=== PATIENT | female | born 1985 | race Caucasian/White ===

== ENCOUNTER 2017-04-19 11:03 | Emergency (ER) | payer OTHER ==
[2017-04-19 11:07] VITALS: BP 124/50; PULSE 79; TEMP 97.8; BMI 25.6
--- NOTE | 2017-04-19 11:13 | PDOC ---
History of Present Illness - General Chief Complaint: Vaginal Bleeding Stated Complaint: ABD PAIN (5 WKS ) Time Seen by Provider: 04/19/17 11:10 - History of Present Illness Travel History: No Initial Comments: 04/19/17 15:45 32yo Czech speaking woman with no significant PMH who is 5 weeks and presents with three days of diffuse abdominal pain that radiates bilaterally to her flanks. LMP 03/04/17. The pain is worse when she is lying on either side. Endorses small amoung of vaginal bleeding and nausea. Denies emesis , fever, chills, dysuria, melena, and hematochezia. She has been able to tolerate PO. She has not received any care. Past History - Past Medical History Allergies/Adverse Reactions: Allergies Allergy/AdvReac Type Severity Reaction Status Date / Time No Known Allergies Allergy Verified 04/19/17 11:04 COPD: No - Suicide/Smoking/Psychosocial Hx Smoking History: Never smoked Have you smoked in the past 12 months: No Information on smoking cessation initiated: No Hx Alcohol Use: No Drug/Substance Use Hx: No Substance Use Type: None *Physical Exam - Vital Signs Last Vital Signs Temp Pulse Resp BP Pulse Ox 97.8 F 79 18 124/50 100 04/19/17 11:05 04/19/17 11:05 04/19/17 11:05 04/19/17 11:05 04/19/17 11:05 - Physical Exam General Appearance: Yes: Appropriately Dressed, Apparent Distress HEENT: positive: Normal ENT Inspection Neck: positive: Supple. negative: Lymphadenopathy (R), Lymphadenopathy (L) Respiratory/Chest: positive: Lungs Clear, Normal Breath Sounds Cardiovascular: positive: Regular Rhythm, Regular Rate, S1, S2 Vascular Pulses: Dorsalis-Pedis (R): 2+, Doralis-Pedis (L): 2+ Female Pelvic Exam: positive: normal external exam, cervical os closed. negative: adnexal tenderness Gastrointestinal/Abdominal: positive: Soft, Other (diffuse abdominal ttp L > R) . negative: Distended, Guarding Musculoskeletal: positive: CVA Tenderness (mild) Neurologic: positive: Fully Oriented, Alert, Normal Mood/Affect ED Treatment Course - LABORATORY CBC & Chemistry Diagram: 04/19/17 11:51 04/19/17 11:51 - RADIOLOGY Radiology Studies Ordered: 04/19/17 16:12 EXAM#: TYPE/EXAM: RESULT: [id number] US/TRANSVAGINAL US PREG 5 weeks . Spotting. Evaluate fetus. Pelvis ultrasound ,Transvesical and transvaginal The uterus is gravid measuring 8.8 x 5.3 cm. An intrauterine gestation sac and pole are identified. Long View-rump length measures 8 mm compatible 6 weeks 5 days of gestation. heart rate is 1 20 bpm. A tiny yolk sac is identified measuring 2 mm. The right ovary measures 4.2 x 3.1 cm and appears unremarkable normal vascular flow. Left ovary measures 3.5 x 1.6 cm and appears unremarkable with normal vascular flow. There is no free fluid in the cul-de-sac IMPRESSION: Single live intrauterine with estimated gestational age of 6 weeks 4 days. Both ovaries appear unremarkable. Follow-up is needed Reported By: Stew Cunningham MD 04/19/17 1447 Sara Lindquist Technologist: Vannessa Uribe Transcribed Date/Time: 04/19/171446 [employer] Operator: Stew Cunningham Printed Date/Time: By: Medical Decision Making - Medical Decision Making 04/19/17 16:08 32yo woman who is reportedly 5 weeks who presents with acute onset abdominal pain and vaginal spotting. Current differential includes, but not limited to threatened vs UTI. Will peform basic labs including CBC , CMP, UA, Beta-HCG, and TVUS to assess the fetus. CBC, BMP 04/19/17 11:51 04/19/17 11:51 Hepatic Panel Total Bilirubin 0.2 mg/dL (0.2-1.0) 04/19/17 11:51 AST 14 U/L (15-37) L 04/19/17 11:51 ALT 19 U/L (12-78) 04/19/17 11:51 Alkaline Phosphatase 73 U/L (45-117) 04/19/17 11:51 Albumin 3.9 g/dl (3.4-5.0) 04/19/17 11:51 Laboratory Tests 04/19/17 11:51 Beta HCG, Quant 10734.3 Labs reassuring that there is unlikely an infection. TVUS revealed single live intrauterine estimated at 6 weeks 4 days. No comment of heart beat, but gestational sac and pole are identified. Patient's vital signs are stable, and patient is well appearing. Patient will be discharged home. All laboratory and imaging results were discussed with the patient. Instructed her to follow-up with Dr. Darnell FLOODPLAIN MANAGER on ( office closed on Wednesday) for a repeat quantitative Beta HCG and ultrasound. Patient is in agreement with plan. *DC/Admit/Observation/Transfer Diagnosis at time of Disposition: Miscarriage, threatened, early - Referrals Referrals: Treasure Darnell MD [Staff Physician] - - Patient Instructions Printed Discharge Instructions: DI for Threatened Additional Instructions: Please follow-up with your Deaf And Hard Of Hearing Teacher in the next 48 hours to have your Beta[place] ([place] [address].3) and to repeat your ultrasound. You can take Tylenol for your pain as needed. Please return to the Emergency Department if you have vaginal bleeding, intense pain, fever, chills, can't keep down any food, or have new, worsening, or concerning symptoms. Print Language: IRISH - Post Discharge Activity
--- NOTE | 2017-04-19 11:17 | PDOC ---
Attending Attestation - Resident Resident Name: Sara Lindquist - ED Attending Attestation I have performed the following: I have examined & evaluated the patient, The case was reviewed & discussed with the resident, I agree w/resident's findings & plan, Exceptions are as noted - HPI HPI: 04/19/17 11:15 Five weeks , vaginal bleeding - Physicial Exam PE: 04/19/17 11:16 VSS, NAD, No Hemorrhage - Medical Decision Making 04/19/17 11:[address] Lindquist's assessment and plan
[2017-04-19] MEDS ORDERED: ACETAMINOPHEN 1000 MG/100 ML VIAL (NON FORMULARY) IVPB ONE (11:50)
[2017-04-19 12:16] LABS: BASO % 0.5 % (0-2.0); EOS % 0.8 % (0-4.5); HEMATOCRIT 39.6 % (32.4-45.2); HEMOGLOBIN 13.1 GM/dL (10.7-15.3); LYMPH % 20.5 % (8-40); MCH 29.5 pg (25.7-33.7); MCHC 33.2 g/dl (32.0-36.0); MEAN PLT VOLUME 9.2 fl (7.5-11.1); MONO % 7.1 % (3.8-10.2); NEUT % 71.1 % (42.8-82.8); PLATELET COUNT 249 K/MM3 (134-434); RBC 4.45 M/mm3 (3.60-5.2); RDW 13.9 % (11.6-15.6); WHITE BLOOD COUNT 7.9 K/mm3 (4.0-10.0)
[2017-04-19 12:18] LABS: URINE APPEARANCE SLCLOUDY; URINE BILIRUBIN NEGATIVE (NEGATIVE); URINE BLOOD NEGATIVE (NEGATIVE); URINE COLOR LTYELLOW; URINE GLUCOSE (UA) NEGATIVE (NEGATIVE); URINE KETONE NEGATIVE (NEGATIVE); URINE NITRITE NEGATIVE (NEGATIVE); URINE PROTEIN NEGATIVE (NEGATIVE); URINE UROBILINOGEN NEGATIVE mg/dL (0.2-1.0)
[2017-04-19] MEDS ORDERED: ACETAMINOPHEN INJECTION 100 ML IVPB ONE (12:18)
[2017-04-19 12:28] LABS: CHLORIDE 103 mmol/L (98-107); POTASSIUM 3.5 mmol/L (3.5-5.1); SODIUM 138 mmol/L (136-145)
[2017-04-19 12:30] LABS: URINE LEUK ESTERASE 1+ (NEGATIVE)
[2017-04-19 12:44] LABS: EPI CELLS RARE /HPF (FEW); URINE MUCUS RARE
[2017-04-19 13:08] LABS: ALBUMIN 3.9 g/dl (3.4-5.0); ALK PHOS 73 U/L (45-117); ANION GAP 11 (8-16); BILIRUBIN,TOTAL 0.2 mg/dL (0.2-1.0); BLOOD UREA NITROGEN 8 mg/dL (7-18); CO2 24 mmol/L (21-32); CREATININE 0.7 mg/dL (0.55-1.02); GLUCOSE,RANDOM 106 mg/dL (74-106); SGOT/AST 14 U/L (15-37); SGPT/ALT 19 U/L (12-78); TOT PROT 7.8 g/dl (6.4-8.2)
== END 2017-04-19 16:44 | disposition home or self-care (01) ==
LOC: JER 11:03
PROC: 3E033NZ Introduction of Analgesics, Hypnotics, Sedatives into Peripheral Vein, Percutaneous Approach (ICD-10-PCS; principal; 2017-04-19)
DX: O26.891 Other specified pregnancy related conditions, first trimester (principal); Z3A.01 Less than 8 weeks gestation of pregnancy; O20.0 Threatened abortion
CPT/HCPCS: 36415; 76817-TC; 80053; 81003; 81015; 84702; 85025; 86850; 86900; 86901; 87491; 87591; 96374; 99284-25

== ENCOUNTER 2017-07-18 23:05 | Emergency (ER) | payer OTHER ==
[2017-07-18 23:19] VITALS: BP 103/69; PULSE 67; TEMP 98; BMI 24.9
[2017-07-19] MEDS ORDERED: SODIUM CHLORIDE 0.9% 500 ML INFUS.BAG IV ONE (01:16)
[2017-07-19] MEDS ORDERED: ONDANSETRON 4 MG/2 ML VIAL IVPUSH ONE (01:17)
[2017-07-19] MEDS ORDERED: ONDANSETRON 4 MG/2 ML VIAL ONE (01:18)
--- NOTE | 2017-07-19 01:23 | PDOC ---
History of Present Illness - General Chief Complaint: Pain Stated Complaint: STOMACH PAIN/12 WKS Time Seen by Provider: 07/19/17 01:12 History Source: Patient Exam Limitations: No Limitations - History of Present Illness Initial Comments: 07/19/17 01:17 Patient is a 32 years old female with history C/S x1, LMP 04/08/17, at 4 months complaining off abdominal pain generalized 2 day. Patient states that yesterday she had been vomiting 6 episodes. States no vomiting today however she is still feeling nauseous and has crampy type 10/10 pain generalized. States only hydrate evaluate today. Denies any dysuria, vaginal bleeding, vomiting. PMD: Dr. Grimm PMHX: as above PSOCHX: neg cig, drug, etoh ALL: NKDA GENERAL/CONSTITUTIONAL: [No fever or chills. No weakness. No weight change.] HEAD, EYES, EARS, NOSE AND THROAT: [No change in vision. No ear pain or discharge. No sore throat.] CARDIOVASCULAR: [No chest pain or shortness of breath.] RESPIRATORY: [No cough, wheezing, or hemoptysis.] GASTROINTESTINAL: (+) nausea, vomiting, (-) diarrhea or constipation. No rectal bleeding.] GENITOURINARY: [No dysuria, frequency, or change in urination.] MUSCULOSKELETAL: [No joint or muscle swelling or pain. No neck or back pain.] SKIN AND BREASTS: [No rash or easy bruising.] NEUROLOGIC: [No headache, vertigo, loss of consciousness, or loss of sensation.] PSYCHIATRIC: [No depression or anxiety.] ENDOCRINE: [No increased thirst. No abnormal weight change.] HEMATOLOGIC/LYMPHATIC: [No anemia, easy bleeding, or history of blood clots.] ALLERGIC/IMMUNOLOGIC: [No hives or skin allergy. No latex allergy.] GENERAL: [The patient is awake, alert, and fully oriented, in no acute distress. ] HEAD: [Normal with no signs of trauma.] EYES: [Pupils equal, round and reactive to light, extraocular movements intact, sclera anicteric, conjunctiva clear.] ENT: [Ears normal, nares patent, oropharynx clear without exudates. Moist mucous membranes.] NECK: [Normal range of motion, supple without lymphadenopathy, JVD, or masses.] LUNGS: [Breath sounds equal, clear to auscultation bilaterally. No wheezes, and no crackles.] HEART: [Regular rate and rhythm, normal S1 and S2 without murmur, rub.] ABDOMEN: [Soft, (+)tenderness b/l flank lower ribs, gravid, normoactive bowel sounds. No guarding, no rebound. No masses.] EXTREMITIES: [Normal range of motion, no edema. No clubbing or cyanosis. No cords, erythema, or tenderness.] NEUROLOGICAL: [Cranial nerves II through XII grossly intact. Normal speech, normal gait.] PSYCH: [Normal mood, normal affect.] SKIN: [Warm, Dry, normal turgor, no rashes or lesions noted.] Past History - Past Medical History Allergies/Adverse Reactions: Allergies Allergy/AdvReac Type Severity Reaction Status Date / Time No Known Allergies Allergy Verified 07/18/17 23:14 Home Medications: Ambulatory Orders Cephalexin [Keflex] 500 mg PO TID #20 capsule 07/19/17 COPD: No Other medical history: Pt denies - Reproductive History (#): 2 Para: 1 - Suicide/Smoking/Psychosocial Hx Smoking History: Never smoked Have you smoked in the past 12 months: No Information on smoking cessation initiated: No Hx Alcohol Use: No Drug/Substance Use Hx: No Substance Use Type: None *Physical Exam - Vital Signs Last Vital Signs Temp Pulse Resp BP Pulse Ox 98.0 F 67 18 103/69 99 07/18/17 23:15 07/18/17 23:15 07/18/17 23:15 07/18/17 23:15 07/18/17 23:15 ED Treatment Course - LABORATORY CBC & Chemistry Diagram: 07/19/17 01:20 07/19/17 01:20 Medical Decision Making - Medical Decision Making 07/19/17 01:17 Patient is a 32 years old female with history C/S x1, LMP 04/08/17, at 4 months complaining off abdominal pain generalized 2 day. Most likely dehydrated due to vomiting. IV fluids and Zofran. Labs, reassess. Bedside ultrasound done noted IUP, FH 141 07/19/17 04:57 labs reviewed noted to have wbc on the urine given Keflex 500mg po will discharge with Keflex for 7 days I discussed the physical exam findings, ancillary test results and final diagnoses with the patient. I answered all of the patient's questions. The patient was satisfied with the care received and felt comfortable with the discharge plan and treatment plan. The Patient agrees to follow up with the primary care physician within 24-72 hours. *DC/Admit/Observation/Transfer Diagnosis at time of Disposition: Urinary tract infection during Qualifiers: Trimester: second trimester Qualified Code(s): O23.42 - Unspecified infection of urinary tract in , second trimester - Discharge Dispostion Disposition: HOME Condition at time of disposition: Stable - Prescriptions Prescriptions: Cephalexin [Keflex] 500 mg PO TID #20 capsule - Referrals - Patient Instructions Printed Discharge Instructions: DI for Urinary Tract Infection (UTI) Additional Instructions: Your Discharge Instructions: You must call primary care physician within 24 hours to arrange follow-up. Return to the Emergency Department with any new, persistent or worsening symptoms, for fever, chills, SOB, dizziness or any other concerning changes that may occur. You must take the antibiotics as prescribed until finished. Print Language: INDONESIAN - Post Discharge Activity
[2017-07-19 01:36] LABS: BASO % 0.6 % (0-2.0); EOS % 6.1 % (0-4.5); HEMATOCRIT 32.8 % (32.4-45.2); HEMOGLOBIN 11.5 GM/dL (10.7-15.3); LYMPH % 34.5 % (8-40); MCHC 35.1 g/dl (32.0-36.0); MEAN CELL VOLUME 91.3 fl (80-96); MEAN PLT VOLUME 8.7 fl (7.5-11.1); MONO % 8.5 % (3.8-10.2); NEUT % 50.3 % (42.8-82.8); PLATELET COUNT 213 K/MM3 (134-434); RBC 3.59 M/mm3 (3.60-5.2); RDW 14.5 % (11.6-15.6); WHITE BLOOD COUNT 7.5 K/mm3 (4.0-10.0)
[2017-07-19 01:37] LABS: URINE APPEARANCE CLOUDY; URINE BILIRUBIN NEGATIVE (NEGATIVE); URINE BLOOD 1+ (NEGATIVE); URINE COLOR YELLOW; URINE GLUCOSE (UA) NEGATIVE (NEGATIVE); URINE KETONE NEGATIVE (NEGATIVE); URINE NITRITE NEGATIVE (NEGATIVE); URINE PROTEIN NEGATIVE (NEGATIVE); URINE UROBILINOGEN NEGATIVE mg/dL (0.2-1.0)
[2017-07-19 01:39] LABS: URINE LEUK ESTERASE 3+ (NEGATIVE)
[2017-07-19 01:41] LABS: EPI CELLS MANY /HPF (FEW); URINE BACTERIA RARE /hpf (NONE SEEN); URINE MUCUS RARE
[2017-07-19 02:05] LABS: ANION GAP 12 (8-16); BLOOD UREA NITROGEN 6 mg/dL (7-18); CALCIUM 8.6 mg/dL (8.5-10.1); CHLORIDE 104 mmol/L (98-107); CO2 23 mmol/L (21-32); CREATININE 0.4 mg/dL (0.55-1.02); GLUCOSE,RANDOM 81 mg/dL (74-106); POTASSIUM 3.9 mmol/L (3.5-5.1); SODIUM 139 mmol/L (136-145)
[2017-07-19] MEDS ORDERED: ACETAMINOPHEN 325 MG TABLET (FP) PO ONE (02:43)
[2017-07-19] MEDS ORDERED: CEPHALEXIN MONOHYDRATE 500 MG CAPSULE (UD) PO ONE (02:43)
[2017-07-19] MEDS ORDERED: ACETAMINOPHEN 325 MG TABLET (FP) ONE (03:23)
[2017-07-19] MEDS ORDERED: CEPHALEXIN MONOHYDRATE 250 MG CAPSULE (FP) ONE (03:23)
== END 2017-07-19 05:22 | disposition home or self-care (01) ==
LOC: JER 23:05
PROC: 3E033GC Introduction of Other Therapeutic Substance into Peripheral Vein, Percutaneous Approach (ICD-10-PCS; principal; 2017-07-18)
DX: O23.42 Unspecified infection of urinary tract in pregnancy, second trimester (principal); Z3A.16 16 weeks gestation of pregnancy
CPT/HCPCS: 36415; 80048; 81003; 81015; 85025; 96374; 99283-25

== ENCOUNTER 2017-08-18 14:27 | Emergency (ER) | payer OTHER ==
[2017-08-18 14:52] VITALS: BMI 26.4
[2017-08-18] MEDS ORDERED: ONDANSETRON *ODT* 4 MG TABLET SL ONE (14:53)
--- NOTE | 2017-08-18 14:53 | PDOC ---
Rapid Medical Evaluation Chief Complaint: Pain Time Seen by Provider: 08/18/17 14:52 Medical Evaluation: Allergies Allergy/AdvReac Type Severity Reaction Status Date / Time No Known Allergies Allergy Verified 08/18/17 14:50 08/18/17 14:52 I have performed a brief in-person evaluation of this patient. The patient presents with a chief complaint of: vomiting/diarrhea since last night, headache, abdominal pain, LMP 04/06/17, 5 meses Pertinent physical exam findings: well appearing I have ordered the following: CMP, CBC, zofran The patient will proceed to the ED for further evaluation. Discharge Disposition - Diagnosis Vomiting and diarrhea - Referrals - Patient Instructions - Post Discharge Activity
[2017-08-18 17:29] VITALS: BP 93/53; PULSE 90; TEMP 98.1
--- NOTE | 2017-08-18 17:53 | PDOC ---
History of Present Illness - General Chief Complaint: Labor Assessment Stated Complaint: NAUSEA VOMITING abd pain Time Seen by Provider: 08/18/17 14:52 - History of Present Illness Initial Comments: 08/18/17 19:01 Patient is a 32-year-old female who is 5 months presents emergency department for nausea vomiting and diarrhea. Patient states that she went out to eat last night and had chicken. She thinks that the chicken was bad both her and her [id number] who ate the chicken got sick. She's had 8-10 episodes of vomiting as well as multiple episodes of diarrhea. Admits to epigastric pain and headache. Denies fevers, chills, hemoptysis, hematochezia, constipation. Denies vaginal bleeding, back pain lower abdominal pain. Past History - Travel Traveled outside of the country in the last 30 days: No Close contact w/someone who was outside of country & ill: No - Past Medical History Allergies/Adverse Reactions: Allergies Allergy/AdvReac Type Severity Reaction Status Date / Time No Known Allergies Allergy Verified 08/18/17 14:52 Home Medications: Ambulatory Orders Cephalexin [Keflex] 500 mg PO TID #20 capsule 07/19/17 COPD: No - Reproductive History (#): 2 Para: 1 - Suicide/Smoking/Psychosocial Hx Smoking History: Never smoked Have you smoked in the past 12 months: No Information on smoking cessation initiated: No Hx Alcohol Use: No Drug/Substance Use Hx: No Substance Use Type: None Review of Systems - Review of Systems Able to Perform ROS?: Yes Comments:: 08/18/17 19:01 CONSTITUTIONAL: Absent: fever, chills, diaphoresis, generalized weakness, malaise, loss of appetite HEENT: Absent: rhinorrhea, nasal congestion, throat pain, throat swelling, difficulty swallowing, mouth swelling, ear pain, eye pain, visual Changes CARDIOVASCULAR: Absent: chest pain, loss of consciousness, palpitations, irregular heart rate, peripheral edema RESPIRATORY: Absent: cough, shortness of breath, dyspnea with exertion, orthopnea, wheezing, stridor, hemoptysis GASTROINTESTINAL: Present: abdominal pain, nausea, vomiting, diarrhea. Absent: abdominal distension, constipation, melena, hematochezia GENITOURINARY: Absent: dysuria, frequency, urgency, hesitancy, hematuria, flank pain, genital pain, vaginal bleeding. MUSCULOSKELETAL: Absent: myalgia, arthralgia, joint swelling SKIN: Absent: rash, itching, pallor HEMATOLOGIC/IMMUNOLOGIC: Absent: easy bleeding, easy bruising, lymphadenopathy, frequent infections ENDOCRINE: Absent: unexplained weight gain, unexplained weight loss, heat intolerance, cold intolerance NEUROLOGIC: Present: headache Absent: focal weakness or paresthesias, dizziness, unsteady gait, seizure, mental status changes, bladder or bowel incontinence PSYCHIATRIC: Absent: anxiety, depression, suicidal or homicidal ideation, hallucinations. Is the patient limited Belarusian proficient: No *Physical Exam - Vital Signs Last Vital Signs Temp Pulse Resp BP Pulse Ox 98.1 F 90 20 93/53 100 08/18/17 17:23 08/18/17 17:23 08/18/17 17:23 08/18/17 17:23 08/18/17 14:50 - Physical Exam Comments: 08/18/17 19:02 GENERAL: Well developed, well nourished. Awake and alert. No acute distress. Appears well , non-toxic. HEENT: Normocephalic, atraumatic. PERRLA, EOMI. No conjunctival pallor. Sclera are non- icteric. Moist mucous membranes. Oropharynx is clear. NECK: Supple. Full ROM. No JVD. Carotid pulses 2+ and symmetric, without bruits. No thyromegaly. No lymphadenopathy. CARDIOVASCULAR: Regular rate and rhythm. No murmurs, rubs, or gallops. Distal pulses are 2+ and symmetric. PULMONARY: No evidence of respiratory distress. Lungs clear to auscultation bilaterally. No wheezing, rales or rhonchi. ABDOMINAL: diffuse abdominal tenderness with no focal findings. Soft. Non-tender. Non- distended. No rebound or guarding. No organomegaly. Normoactive bowel sounds. MUSCULOSKELETAL Normal range of motion at all joints. No bony deformities or tenderness. No CVA tenderness. EXTREMITIES: No cyanosis. No clubbing. No edema. No calf tenderness. SKIN: Warm and dry. Normal capillary refill. No rashes. No jaundice. NEUROLOGICAL: Alert, awake, appropriate. Cranial nerves 2-12 intact. No deficits to light touch and temperature in face, upper extremities and lower extremities. No motor deficits in the in face, upper extremities and lower extremities. Normoreflexic in the upper and lower extremities. Normal speech. Toes are down- going bilaterally. Gait is normal without ataxia. PSYCHIATRIC: Cooperative. Good eye contact. Appropriate mood and affect. ED Treatment Course - LABORATORY CBC & Chemistry Diagram: 08/18/17 19:53 08/18/17 20:40 Medical Decision Making - Medical Decision Making 08/18/17 19:03 Patient is a 32-year-old female 5 months , who presents emergency Department with nausea vomiting and headache after eating bad chicken. Patient was cleared from labor and delivery. Exam with diffuse tenderness but no focal findings. Most likely due to vomiting. Fluids Zofran and Pepcid and Tylenol given. Patient pending labs. Sign out given to Deepa Mckinney NP. *DC/Admit/Observation/Transfer Diagnosis at time of Disposition: Vomiting and diarrhea, Gastroenteritis - Discharge Dispostion Disposition: HOME Condition at time of disposition: Stable Admit: No - Referrals - Patient Instructions Printed Discharge Instructions: Viral Gastroenteritis, Gastroenteritis Diet Additional Instructions: start a BRAT (bananas, RICE, apples, toast) diet. drink plenty of fluids. follow up with your doctor as soon as possible. - Post Discharge Activity Forms/Work/School Notes: Back to Work
[2017-08-18] MEDS ORDERED: SODIUM CHLORIDE 1,000 ML IV STA (17:56)
[2017-08-18] MEDS ORDERED: ONDANSETRON 4 MG/2 ML VIAL IVPUSH ONE (17:56)
[2017-08-18] MEDS ORDERED: FAMOTIDINE IV 20 MG/12 ML VIAL IVPB ONE (17:56)
[2017-08-18] MEDS ORDERED: ACETAMINOPHEN 1000 MG/100 ML VIAL (NON FORMULARY) IVPB ONE (18:19)
[2017-08-18] MEDS ORDERED: ACETAMINOPHEN INJECTION 100 ML IVPB ONE (19:41)
[2017-08-18] MEDS ORDERED: FAMOTIDINE 20 MG/50 ML IVPB 20 MG/50 ML MG IVPB ONE (19:42)
[2017-08-18] MEDS ORDERED: ONDANSETRON 4 MG/2 ML VIAL ONE (19:42)
[2017-08-18 20:06] LABS: BASO % 0.3 % (0-2.0); EOS % 1.4 % (0-4.5); HEMATOCRIT 27.3 % (32.4-45.2); HEMOGLOBIN 9.5 GM/dL (10.7-15.3); LYMPH % 13.7 % (8-40); MCH 32.1 pg (25.7-33.7); MEAN CELL VOLUME 91.9 fl (80-96); MEAN PLT VOLUME 9.2 fl (7.5-11.1); MONO % 8.6 % (3.8-10.2); PLATELET COUNT 235 K/MM3 (134-434); RBC 2.97 M/mm3 (3.60-5.2); RDW 13.3 % (11.6-15.6); WHITE BLOOD COUNT 7.9 K/mm3 (4.0-10.0)
--- NOTE | 2017-08-18 20:17 | PDOC ---
*Physical Exam - Vital Signs Last Vital Signs Temp Pulse Resp BP Pulse Ox 98.1 F 90 20 93/53 100 08/18/17 17:23 08/18/17 17:23 08/18/17 17:23 08/18/17 17:23 08/18/17 14:50 ED Treatment Course - LABORATORY CBC & Chemistry Diagram: 08/18/17 19:53 08/18/17 19:53 - ADDITIONAL ORDERS Additional order review: 08/18/17 19:53 RBC 2.97 L MCV 91.9 MCHC 35.0 RDW 13.3 MPV 9.2 Neutrophils % 76.0 D Lymphocytes % 13.7 D Monocytes % 8.6 Eosinophils % 1.4 Basophils % 0.3 - Medications Given in the ED: ED Medications Discontinued Medications Generic Name Dose Route Start Last Admin Trade Name Freq PRN Reason Stop Dose Admin Acetaminophen 1,000 mg 08/18/17 18:19 08/18/17 20:07 Ofirmev Injection - IVPB 08/18/17 18:20 1,000 mg ONCE ONE Administration Famotidine 20 mg in 12 mls @ 144 mls/hr 08/18/17 17:56 08/18/17 20:07 Pepcid 20 Mg/12 Ml Push IVPB 08/18/17 18:00 144 mls/hr ONCE ONE Administration Sodium Chloride 1,000 mls @ 1,000 mls/hr 08/18/17 17:56 08/18/17 20:07 Normal Saline - IV 08/18/17 18:55 1,000 mls/hr ASDIR STA Administration Ondansetron HCl 4 mg 08/18/17 14:53 08/18/17 20:09 Zofran Odt - SL 08/18/17 14:54 Not Given ONCE ONE Ondansetron HCl 4 mg 08/18/17 17:56 08/18/17 20:07 Zofran Injection IVPUSH 08/18/17 17:57 4 mg ONCE ONE Administration Medical Decision Making - Medical Decision Making 08/18/17 20:16 patient is requesting PO food. will PO challenge at this time. 08/18/17 20:37 [patient tolerated PO. CMP hemolyzed. will repeat to r/.o electrolyte abnormalities/ and assess LFTs. *DC/Admit/Observation/Transfer Diagnosis at time of Disposition: Vomiting and diarrhea, Gastroenteritis - Referrals - Patient Instructions Printed Discharge Instructions: Viral Gastroenteritis, Gastroenteritis Diet Additional Instructions: start a BRAT (bananas, RICE, apples, toast) diet. drink plenty of fluids. follow up with your doctor as soon as possible. - Post Discharge Activity Forms/Work/School Notes: Back to Work
[2017-08-18 21:12] LABS: ALBUMIN 2.6 g/dl (3.4-5.0); ALK PHOS 80 U/L (45-117); ANION GAP 7 (8-16); BILIRUBIN,TOTAL 0.2 mg/dL (0.2-1.0); BLOOD UREA NITROGEN 4 mg/dL (7-18); CALCIUM 7.6 mg/dL (8.5-10.1); CHLORIDE 108 mmol/L (98-107); CO2 23 mmol/L (21-32); CREATININE 0.4 mg/dL (0.55-1.02); GLUCOSE,RANDOM 75 mg/dL (74-106); POTASSIUM 3.2 mmol/L (3.5-5.1); SGOT/AST 10 U/L (15-37); SGPT/ALT 15 U/L (12-78); SODIUM 138 mmol/L (136-145)
== END 2017-08-18 22:02 | disposition home or self-care (01) ==
LOC: JER 14:27
DX: O26.892 Other specified pregnancy related conditions, second trimester (principal); Z3A.20 20 weeks gestation of pregnancy; R11.2 Nausea with vomiting, unspecified; R10.9 Unspecified abdominal pain; R19.7 Diarrhea, unspecified
CPT/HCPCS: 36415; 80053; 85025; 99282-25; J0131; J7030

== ENCOUNTER 2017-11-04 21:27 | Emergency (ER) | payer OTHER ==
[2017-11-04 21:33] VITALS: BP 100/56; PULSE 74; TEMP 97.4; BMI 25.4
--- NOTE | 2017-11-04 21:36 | PDOC ---
Rapid Medical Evaluation Chief Complaint: Sore Throat Time Seen by Provider: 11/04/17 21:34 Medical Evaluation: Allergies Allergy/AdvReac Type Severity Reaction Status Date / Time No Known Allergies Allergy Verified 11/04/17 21:33 Vital Signs Temp Pulse Resp BP Pulse Ox 97.4 F L 74 18 100/56 99 11/04/17 21:30 11/04/17 21:30 11/04/17 21:30 11/04/17 21:30 11/04/17 21:30 11/04/17 21:34 I have performed a brief in-person evaluation of this patient. The patient presents with a chief complaint of: sore throat and cough x1 week Pertinent physical exam findings: OP- clear without erythema/exudates. Lungs CTAB I have ordered the following: rapid strep The patient will proceed to the ED for further evaluation. Discharge Disposition - Diagnosis Pharyngitis - Referrals - Patient Instructions - Post Discharge Activity
--- NOTE | 2017-11-04 23:06 | PDOC ---
History of Present Illness - General Chief Complaint: Sore Throat Stated Complaint: CONGESTION/28 WKS Time Seen by Provider: 11/04/17 21:34 History Source: Patient Exam Limitations: No Limitations - History of Present Illness Initial Comments: 11/04/17 23:08 This is a 32-year-old who is 6 months (does not remember LMP) who presents emergency Department with sore throat and cough for one week. She denies any sick contacts. She denies any mucus production when she coughs. She denies chest pain, shortness of breath. She denies difficulty swallowing, shortness of breath, fevers, chills, drooling, abdominal pain, vaginal bleeding or vaginal discharge. Patient states child is still moving has been no change in activity. Past History - Past Medical History Allergies/Adverse Reactions: Allergies Allergy/AdvReac Type Severity Reaction Status Date / Time No Known Allergies Allergy Verified 11/04/17 21:33 Home Medications: Ambulatory Orders NK [No Known Home Medication] 11/04/17 COPD: No - Reproductive History (#): 2 Para: 1 - Suicide/Smoking/Psychosocial Hx Smoking History: Never smoked Have you smoked in the past 12 months: No Hx Alcohol Use: No Drug/Substance Use Hx: No Substance Use Type: None Review of Systems - Review of Systems Able to Perform ROS?: Yes Is the patient limited Citizen Of [place] proficient: No Constitutional: No: Symptoms Reported HEENTM: Yes: See HPI Respiratory: Yes: See HPI Cardiac (ROS): No: Symptoms Reported ABD/GI: No: Symptoms Reported : No: Symptoms Reported Musculoskeletal: No: Symptoms Reported Integumentary: No: Symptoms Reported Neurological: No: Symptoms reported Endocrine: No: Symptoms Reported Hematologic/Lymphatic: No: Symptoms Reported *Physical Exam - Vital Signs Last Vital Signs Temp Pulse Resp BP Pulse Ox 97.4 F L 74 18 100/56 99 11/04/17 21:30 11/04/17 21:30 11/04/17 21:30 11/04/17 21:30 11/04/17 21:30 - Physical Exam General Appearance: Yes: Appropriately Dressed. No: Apparent Distress HEENT: positive: Normal ENT Inspection Neck: positive: Trachea midline, Supple Respiratory/Chest: positive: Lungs Clear, Normal Breath Sounds. negative: Respiratory Distress, Accessory Muscle Use Cardiovascular: positive: Regular Rhythm, Regular Rate. negative: Murmur Gastrointestinal/Abdominal: positive: Normal Bowel Sounds, Soft. negative: Tender Musculoskeletal: positive: Normal Inspection. negative: CVA Tenderness Extremity: positive: Normal Inspection Integumentary: positive: Normal Color, Dry, Warm Neurologic: positive: Alert, Normal Response ED Treatment Course - ADDITIONAL ORDERS Additional order review: 11/04/17 21:41 Group A Strep Rapid Antigen - Final Throat Medical Decision Making - Medical Decision Making 11/04/17 23:09 A/P: 32-year-old woman who is 6 months with sore throat and dry cough for one week Oropharynx clear without erythema or exudates. Cobblestoning noted in the posterior oropharynx No sinus tenderness noted TMs clear without erythema or bulging Lungs clear to auscultation bilaterally Patient with signs and symptoms of an upper respiratory viral infection. I will collect a rapid strep rule out bacterial etiology as patient is . I'll defer influenza testing as patient has had symptoms for 7 days. I present the patient denies any complaints regarding the . Rapid strep testing is negative. I will discharge the patient home with symptomatically treatment for an upper respiratory viral infection. I will refer patient back to her primary diplomatic interpreter/translator for continued evaluation and treatment. I discussed the physical exam findings, ancillary test results and final diagnoses with the patient. I answered all of the patient's questions. The patient was satisfied with the care received and felt comfortable with the discharge plan and treatment plan. The patient will call her diplomatic interpreter/translator within 48 hours to arrange follow-up and will return to the Emergency Department with any new, persistent or worsening symptoms. *DC/Admit/Observation/Transfer Diagnosis at time of Disposition: Pharyngitis Qualifiers: Pharyngitis/tonsillitis etiology: unspecified etiology Qualified Code(s): J02.9 - Acute pharyngitis, unspecified - Discharge Dispostion Disposition: HOME Condition at time of disposition: Stable Decision to Admit order: No - Referrals Referrals: Anayeli Grimm MD [Primary Care Provider] - Gricel Collins MD [Staff Physician] - - Patient Instructions Printed Discharge Instructions: DI for Viral Upper Respiratory Infection -- Adult Additional Instructions: Rest, drink lots of fluids: Teas, water, soups, Pedialyte Saltwater gargles Steamy showers/seem to face break up mucus Avoid contact with others until fevers and cough resolved Lots of handwashing and good hygiene Continue [id number] medications for symptomatic relief Tylenol or Motrin for fever and pain Followup with private physician in one to 2 days as needed Return to emergency department for worsened symptoms, fevers, dehydration [place]cansa, bro muchos lquidos: ts, agua, sopas, Pedialyte Grgaras de agua salada Las duchas con agua parecen romper la mucosidad Evite el contacto con otras personas hasta que se resuelvan las fiebres y la tos Mucho lavado de jacinto y buena higiene Continuar tomando medicamentos sin receta para aliviar los sntomas Tylenol o Motrin para la fiebre y el dolor Seguimiento con un mdico privado en shahriar o dos pereira segn sea necesario Regrese al departamento de emergencias por sntomas empeorados, fiebre, deshidratacin Print Language: MONTENEGRIN - Post Discharge Activity
[2017-11-04] MEDS ORDERED: ACETAMINOPHEN 500 MG TABLET (FP) PO ONE (23:23)
[2017-11-04] MEDS ORDERED: ACETAMINOPHEN 500 MG TABLET (FP) ONE (23:24)
== END 2017-11-04 23:25 | disposition home or self-care (01) ==
LOC: JERFT 21:27
DX: O26.892 Other specified pregnancy related conditions, second trimester (principal); J02.9 Acute pharyngitis, unspecified; Z3A.24 24 weeks gestation of pregnancy
CPT/HCPCS: 87070; 87430; 99281-25

== ENCOUNTER 2022-04-02 21:30 | Emergency (ER) | payer OTHER ==
[2022-04-02 21:58] VITALS: BP 105/65; PULSE 67; RESP 18; TEMP 97.6; BMI 25.3
[2022-04-03] MEDS ORDERED: KETOROLAC TROMETHAMINE 30 MG/1 ML VIAL IM ONE (01:01)
[2022-04-03] MEDS ORDERED: DEXAMETHASONE SOD PHOSPHATE 10 MG/1 ML VIAL IM ONE (01:01)
[2022-04-03] MEDS ORDERED: DEXAMETHASONE SOD PHOSPHATE 10 MG/1 ML VIAL ONE (01:05)
[2022-04-03] MEDS ORDERED: KETOROLAC TROMETHAMINE 30 MG/1 ML VIAL ONE (01:05)
== END 2022-04-03 02:10 | disposition home or self-care (01) ==
LOC: JER 21:30 → JERFT 21:30 → JER 04-03 02:10
PROC: 3E0233Z Introduction of Anti-inflammatory into Muscle, Percutaneous Approach (ICD-10-PCS; principal; 2022-04-03)
PROC: 3E023NZ Introduction of Analgesics, Hypnotics, Sedatives into Muscle, Percutaneous Approach (ICD-10-PCS; 2022-04-03)
DX: M25.561 Pain in right knee (principal)
CPT/HCPCS: 99284-25; J1100

== ENCOUNTER 2022-10-02 09:36 | Emergency (ER) | payer OTHER ==
[2022-10-02 09:48] VITALS: BP 101/69; PULSE 88; RESP 17; TEMP 98.5; BMI 23.9
[2022-10-02 12:55] LABS: EPI CELLS 29 /uL (0-25.1); HEMATOCRIT 33.3 % (32.4-45.2); HYALINE CASTS 5 /uL (0-3.1); MCH 24.6 pg (25.7-33.7); MEAN CELL VOLUME 74.6 fl (80-96); MEAN PLT VOLUME 9.4 fl (7.5-11.1); PLATELET COUNT 185 10^3/uL (134-434); RBC 4.47 M/mm3 (3.60-5.2); RDW 17.1 % (11.6-15.6); URINE APPEARANCE CLEAR; URINE BACTERIA 546 /uL (0-1359); URINE BILIRUBIN NEGATIVE (NEGATIVE); URINE COLOR YELLOW; URINE GLUCOSE (UA) NEGATIVE (NEGATIVE); URINE KETONE 2+ (NEGATIVE); URINE LEUK ESTERASE 2+ (NEGATIVE); URINE NITRITE NEGATIVE (NEGATIVE); URINE PROTEIN TRACE (NEGATIVE); URINE WBC 181 /uL (0-25.8); WHITE BLOOD COUNT 3.4 K/mm3 (4.0-10.0)
[2022-10-02 13:07] LABS: URINE RBC 122.8 /uL (0-23.9); YEAST NEGATIVE (NEGATIVE)
[2022-10-02 13:18] LABS: POTASSIUM 3.5 mmol/L (3.5-5.1)
[2022-10-02 13:21] LABS: CALCIUM 8.5 mg/dL (8.5-10.1)
[2022-10-02 13:22] LABS: ALBUMIN 3.6 g/dl (3.4-5.0); BLOOD UREA NITROGEN 7.1 mg/dL (7-18)
[2022-10-02 13:25] LABS: CREATININE 0.7 mg/dL (0.55-1.3)
[2022-10-02 13:27] LABS: BILIRUBIN,TOTAL 0.6 mg/dL (0.2-1); TOT PROT 7.2 g/dl (6.4-8.2)
[2022-10-02] MEDS ORDERED: KETOROLAC TROMETHAMINE 15 MG/ML VIAL IM ONE (16:33)
[2022-10-02] MEDS ORDERED: KETOROLAC TROMETHAMINE 15 MG/ML VIAL ONE (16:38)
== END 2022-10-02 20:42 | disposition home or self-care (01) ==
LOC: JER 09:36
PROC: 3E0233Z Introduction of Anti-inflammatory into Muscle, Percutaneous Approach (ICD-10-PCS; principal; 2022-10-02)
DX: R10.11 Right upper quadrant pain (principal); N39.0 Urinary tract infection, site not specified; R30.0 Dysuria; M54.50 Low back pain, unspecified; R50.9 Fever, unspecified
CPT/HCPCS: 36415; 74176-TC; 80053; 81003; 84703; 85027; 87086; 93005; 93010; 99284-25

== ENCOUNTER 2023-04-29 15:10 | Emergency (ER) | payer OTHER ==
[2023-04-29 15:26] VITALS: PULSE 75; RESP 18; TEMP 98.6; BMI 25.9
[2023-04-29 16:25] LABS: BASO % 0.5 % (0-2.0); EOS % 1.4 % (0-4.5); HEMATOCRIT 35.9 % (32.4-45.2); HEMOGLOBIN 11.8 GM/dL (10.7-15.3); LYMPH % 25.9 % (8-40); MCH 26.7 pg (25.7-33.7); MCHC 32.9 g/dl (32.0-36.0); MEAN CELL VOLUME 81.2 fl (80-96); MEAN PLT VOLUME 9.2 fl (7.5-11.1); MONO % 5.4 % (3.8-10.2); NEUT % 66.8 % (42.8-82.8); PLATELET COUNT 210 10^3/uL (134-434); RBC 4.42 M/mm3 (3.60-5.2); RDW 15.9 % (11.6-15.6); WHITE BLOOD COUNT 7.8 K/mm3 (4.0-10.0)
[2023-04-29 16:27] LABS: EPI CELLS 6 /uL (0-25.1); HYALINE CASTS 0 /uL (0-3.1); PH,URINE 6.5 (5.0-8.0); URINE APPEARANCE CLEAR; URINE BACTERIA 1159 /uL (0-1359); URINE BILIRUBIN NEGATIVE (NEGATIVE); URINE COLOR YELLOW; URINE GLUCOSE (UA) NEGATIVE (NEGATIVE); URINE KETONE 2+ (NEGATIVE); URINE LEUK ESTERASE NEGATIVE (NEGATIVE); URINE NITRITE NEGATIVE (NEGATIVE); URINE PROTEIN NEGATIVE (NEGATIVE); URINE RBC 363 /uL (0-23.9); URINE UROBILINOGEN 0.2 mg/dL (0.2-1.0); URINE WBC 13 /uL (0-25.8)
[2023-04-29 16:43] LABS: POTASSIUM 3.6 mmol/L (3.5-5.1)
[2023-04-29 16:44] LABS: CALCIUM 9.3 mg/dL (8.5-10.1)
[2023-04-29 16:45] LABS: BLOOD UREA NITROGEN 7.8 mg/dL (7-18)
[2023-04-29] MEDS ORDERED: ACETAMINOPHEN 500 MG TABLET (FP) PO ONE (17:05)
[2023-04-29] MEDS ORDERED: ACETAMINOPHEN 500 MG TABLET (FP) ONE (17:05)
[2023-04-29 17:26] LABS: CREATININE 0.6 mg/dL (0.55-1.3)
[2023-04-29 20:16] VITALS: BP 98/57
== END 2023-04-29 20:56 | disposition home or self-care (01) ==
LOC: JER 15:10
DX: O46.8X1 Other antepartum hemorrhage, first trimester (principal); Z34.90 Encounter for supervision of normal pregnancy, unspecified, unspecified trimester
CPT/HCPCS: 36415; 76801-TC; 80048; 81003; 84702; 85025; 86850; 86900; 86901; 87086; 99284-25

== ENCOUNTER 2023-08-09 17:33 | Emergency (ER) | payer OTHER ==
[2023-08-09 17:42] VITALS: BP 92/62; PULSE 75; RESP 18; TEMP 98; BMI 25.6
[2023-08-09 18:43] LABS: EPI CELLS 17 /uL (0-25.1); HYALINE CASTS 0 /uL (0-3.1); PH,URINE 6.5 (5.0-8.0); URINE APPEARANCE CLEAR; URINE BACTERIA 151 /uL (0-1359); URINE BILIRUBIN NEGATIVE (NEGATIVE); URINE COLOR YELLOW; URINE GLUCOSE (UA) NEGATIVE (NEGATIVE); URINE KETONE NEGATIVE (NEGATIVE); URINE LEUK ESTERASE 1+ (NEGATIVE); URINE NITRITE NEGATIVE (NEGATIVE); URINE PROTEIN NEGATIVE (NEGATIVE); URINE RBC 22 /uL (0-23.9); URINE UROBILINOGEN 0.2 mg/dL (0.2-1.0); URINE WBC 51 /uL (0-25.8)
[2023-08-09] MEDS ORDERED: CEPHALEXIN MONOHYDRATE 500 MG CAPSULE (UD) ONE (20:03)
[2023-08-09] MEDS: CEPHALEXIN MONOHYDRATE 500 MG CAPSULE (UD) PO ONE (20:05)
== END 2023-08-09 20:31 | disposition home or self-care (01) ==
LOC: JER 17:33
DX: O23.42 Unspecified infection of urinary tract in pregnancy, second trimester (principal); Z3A.20 20 weeks gestation of pregnancy
CPT/HCPCS: 81003; 87086; 99283-25

== ENCOUNTER 2023-10-02 19:08 | Emergency (ER) | payer OTHER ==
[2023-10-02 19:17] VITALS: BMI 28.1
[2023-10-02 21:07] LABS: BASO % 0.6 % (0-2.0); EOS % 5.6 % (0-4.5); HEMATOCRIT 24.6 % (32.4-45.2); HEMOGLOBIN 7.9 GM/dL (10.7-15.3); MCH 22.7 pg (25.7-33.7); MCHC 32.2 g/dl (32.0-36.0); MEAN CELL VOLUME 70.6 fl (80-96); MEAN PLT VOLUME 7.7 fl (7.5-11.1); MONO % 10.8 % (3.8-10.2); PLATELET COUNT 243 10^3/uL (134-434); RBC 3.48 M/mm3 (3.60-5.2); WHITE BLOOD COUNT 6.6 K/mm3 (4.0-10.0)
[2023-10-02 21:26] LABS: POTASSIUM 3.8 mmol/L (3.5-5.1)
[2023-10-02 21:28] LABS: CALCIUM 7.8 mg/dL (8.5-10.1)
[2023-10-02 21:29] LABS: ALBUMIN 2.4 g/dl (3.4-5.0); BLOOD UREA NITROGEN 6.8 mg/dL (7-18)
[2023-10-02 21:32] LABS: CREATININE 0.5 mg/dL (0.55-1.3)
[2023-10-02 21:33] LABS: BILIRUBIN,TOTAL 0.2 mg/dL (0.2-1)
[2023-10-02] MEDS ORDERED: LIDOCAINE 5% TOPICAL PATCH ONE (21:52)
[2023-10-02] MEDS ORDERED: ACETAMINOPHEN 325 MG TABLET (FP) ONE (21:52)
[2023-10-02] MEDS: ACETAMINOPHEN 325 MG TABLET (FP) PO ONE (22:01)
[2023-10-02] MEDS: LIDOCAINE 5% TOPICAL PATCH TP ONE (22:01)
[2023-10-03] MEDS: IRON SUCROSE INJECTION 100 MG in SODIUM CHLORIDE 95 ML IVPB ONE (01:50)
[2023-10-03 02:08] VITALS: RESP 20
[2023-10-03] MEDS: SODIUM CHLORIDE 0.9% 500 ML INFUS.BAG IV ONE (02:40)
[2023-10-03] MEDS: ELECTROLYTE-148 SOLN 500 ML IV ONE (04:45)
[2023-10-03 05:25] VITALS: BP 97/54; PULSE 67; TEMP 97.7
== END 2023-10-03 06:25 | disposition home or self-care (01) ==
LOC: JER 19:08
PROC: 3E033GC Introduction of Other Therapeutic Substance into Peripheral Vein, Percutaneous Approach (ICD-10-PCS; principal; 2023-10-02)
PROC: 3E033GC Introduction of Other Therapeutic Substance into Peripheral Vein, Percutaneous Approach (ICD-10-PCS; 2023-10-03)
DX: O99.013 Anemia complicating pregnancy, third trimester (principal); D64.9 Anemia, unspecified; O99.893 Other specified diseases and conditions complicating puerperium; R07.89 Other chest pain; R06.02 Shortness of breath; Z3A.32 32 weeks gestation of pregnancy; Z20.822 Contact with and (suspected) exposure to COVID-19
CPT/HCPCS: 0241U-QW; 36415; 80053; 84484; 85025; 93005; 93010; 99284-25; J1756

== ENCOUNTER 2023-11-22 08:00 | Inpatient (IN) | payer OTHER ==
[2023-11-22] MEDS: ELECTROLYTE-148 SOLN 500 ML IV ONE (11:00)
[2023-11-22] MEDS: ELECTROLYTE-148 SOLN 500 ML IV SCH (11:30)
[2023-11-22 11:44] LABS: INR 0.92 (0.83-1.09); PROTHROMBIN TIME (PATIENT) 10.4 SEC (9.7-13.0)
[2023-11-22 11:47] LABS: ACTIVATED PTT 26.4 SECONDS (25.2-36.5)
[2023-11-22 12:16] VITALS: BMI 29.4
[2023-11-22] MEDS: CITRIC ACID/SODIUM CITRATE 30 ML UNIT-DOSE CUP PO ONE (12:45)
[2023-11-22] MEDS ORDERED: ONDANSETRON 4 MG/2 ML VIAL IVPUSH PRN (13:49)
[2023-11-22] MEDS ORDERED: IBUPROFEN 600 MG TABLET (FP) PO PRN (13:49)
[2023-11-22] MEDS ORDERED: ACETAMINOPHEN 325 MG TABLET (FP) PO PRN (13:49)
[2023-11-22] MEDS ORDERED: SODIUM CHLORIDE 0.9% P/F 10 ML VIAL IJ ONE (13:59)
[2023-11-22] MEDS ORDERED: ceFAZolin SODIUM 1 GM VIAL ONE (13:59)
[2023-11-22] MEDS ORDERED: PHENYLEPHRINE HCL 10 MG/1 ML SINGLE DOSE VIAL ONE (14:14)
[2023-11-22] MEDS ORDERED: OXYTOCIN 10 UNITS/ML VIAL ONE (14:24)
[2023-11-22] MEDS ORDERED: FENTANYL CITRATE/PF 50 MCG/ML VIAL ONE (14:25)
[2023-11-22] MEDS ORDERED: MIDAZOLAM HCL 2 MG/2 ML SINGLE DOSE VIAL ONE (14:26)
[2023-11-22] MEDS ORDERED: METOCLOPRAMIDE HCL INJECTION 10 MG/2 ML VIAL ONE (14:26)
[2023-11-22] MEDS ORDERED: KETOROLAC TROMETHAMINE 30 MG/1 ML VIAL ONE (14:43)
[2023-11-22 15:15] LABS: CORD BASE EXCESS -3.1 mmol/L (0-2); CORD HCO3 23.9 mmHg (20-29); CORD PCO2 50.3 mmHg (30-78); CORD pH 7.295 (7.14-7.44)
[2023-11-22 15:17] LABS: CORD BASE EXCESS -3.8 mmol/L (0-2); CORD HCO3 21.1 mmHg (20-29); CORD PCO2 38.2 mmHg (30-78); CORD pH 7.361 (7.14-7.44)
[2023-11-22] MEDS: METHYLERGONOVINE MALEATE 0.2 MG/1 ML AMP IM ONE (15:35)
[2023-11-22] MEDS ORDERED: MISOPROSTOL 200 MCG TABLET ONE (15:37)
[2023-11-22] MEDS: MISOPROSTOL 100 MCG TABLET PR ONE (15:40)
[2023-11-22] MEDS: CARBOPROST TROMETHAMINE 250 MCG/ML AMPUL IM ONE (15:46)
[2023-11-22] MEDS ORDERED: OXYTOCIN 20 UNITS in 0.9% NS 20 UNIT/1,000 ML INFUS.BAG IV ONE ×3 (15:47→21:05)
[2023-11-22 16:08] LABS: BASO % 0.2 % (0-2.0); EOS % 1.4 % (0-4.5); HEMATOCRIT 32.6 % (32.4-45.2); HEMOGLOBIN 10.4 GM/dL (10.7-15.3); LYMPH % 14.6 % (8-40); MCHC 31.8 g/dl (32.0-36.0); MEAN CELL VOLUME 81.8 fl (80-96); MEAN PLT VOLUME 8.5 fl (7.5-11.1); MONO % 5.7 % (3.8-10.2); NEUT % 78.1 % (42.8-82.8); PLATELET COUNT 231 10^3/uL (134-434); RBC 3.99 M/mm3 (3.60-5.2); RDW 28.3 % (11.6-15.6); WHITE BLOOD COUNT 10.4 K/mm3 (4.0-10.0)
[2023-11-22] MEDS: OXYTOCIN 20 UNITS in 0.9% NS 20 UNIT/1,000 ML INFUS.BAG IV SCH (17:15)
[2023-11-22 17:30] LABS: ANISOCYTOSIS 2+; MACROCYTOSIS 0
[2023-11-22 18:11] LABS: BASO % 0.3 % (0-2.0); EOS % 0.7 % (0-4.5); HEMATOCRIT 25.6 % (32.4-45.2); HEMOGLOBIN 8.2 GM/dL (10.7-15.3); LYMPH % 8.1 % (8-40); MCH 25.9 pg (25.7-33.7); MCHC 31.8 g/dl (32.0-36.0); MEAN CELL VOLUME 81.2 fl (80-96); MEAN PLT VOLUME 8.2 fl (7.5-11.1); MONO % 5.1 % (3.8-10.2); NEUT % 85.8 % (42.8-82.8); PLATELET COUNT 170 10^3/uL (134-434); RBC 3.16 M/mm3 (3.60-5.2); RDW 28.4 % (11.6-15.6); WHITE BLOOD COUNT 14.8 K/mm3 (4.0-10.0)
[2023-11-22] MEDS: ELECTROLYTE-148 SOLN 1,000 ML IV SCH (18:34)
[2023-11-22] MEDS: morphine SULFATE/PF 1 MG/2 ML (2cc Syringe - QUVA) EP ONE (18:35)
[2023-11-22] MEDS ORDERED: METHYLERGONOVINE MALEATE 0.2 MG TABLET (FP) ONE (19:35)
[2023-11-22] MEDS: METHYLERGONOVINE MALEATE 0.2 MG TABLET (FP) PO SCH (19:35)
[2023-11-22] MEDS: IBUPROFEN 800 MG/8 ML IJ IVPB PRN (22:02)
[2023-11-22] MEDS: CEFAZOLIN 1 GM in DEXTROSE 5%-WATER - 50 ML IVPB SCH (22:45)
[2023-11-23 00:59] LABS: BASO % 0.4 % (0-2.0); EOS % 0.7 % (0-4.5); HEMOGLOBIN 7.2 GM/dL (10.7-15.3); LYMPH % 8.4 % (8-40); MCH 25.3 pg (25.7-33.7); MCHC 31.3 g/dl (32.0-36.0); MEAN CELL VOLUME 80.7 fl (80-96); MEAN PLT VOLUME 7.8 fl (7.5-11.1); MONO % 5.4 % (3.8-10.2); NEUT % 85.1 % (42.8-82.8); PLATELET COUNT 164 10^3/uL (134-434); RBC 2.85 M/mm3 (3.60-5.2); RDW 28.3 % (11.6-15.6)
[2023-11-23] MEDS ORDERED: oxyCODONE HCL 5 MG TABLET PO PRN (01:52)
[2023-11-23 09:01] LABS: BASO % 0.2 % (0-2.0); EOS % 0.8 % (0-4.5); HEMATOCRIT 25.6 % (32.4-45.2); HEMOGLOBIN 8.2 GM/dL (10.7-15.3); LYMPH % 10.1 % (8-40); MCH 25.4 pg (25.7-33.7); MCHC 31.9 g/dl (32.0-36.0); MEAN CELL VOLUME 79.6 fl (80-96); MEAN PLT VOLUME 8.4 fl (7.5-11.1); MONO % 7.7 % (3.8-10.2); NEUT % 81.2 % (42.8-82.8); PLATELET COUNT 183 10^3/uL (134-434); RBC 3.22 M/mm3 (3.60-5.2); RDW 28.4 % (11.6-15.6); WHITE BLOOD COUNT 11.6 K/mm3 (4.0-10.0)
[2023-11-23] MEDS: ACETAMINOPHEN 325 MG TABLET (FP) PO PRN (09:39)
[2023-11-23] MEDS: SIMETHICONE 80 MG TAB.CHEW (FP) PO PRN (09:39)
[2023-11-23] MEDS: DOCUSATE SODIUM 100 MG CAPSULE (FP) PO SCH (11:38)
[2023-11-23] MEDS: FERROUS SO4 325 MG TABLET (FP) PO SCH (11:38)
[2023-11-23] MEDS: PRENATAL VITAMINS W/ FOLIC ACID TABLET (FP) PO SCH (11:38)
[2023-11-23] MEDS: IBUPROFEN 600 MG TABLET (FP) PO PRN (14:02)
[2023-11-23] MEDS: ELECTROLYTE IV ONE (18:07)
[2023-11-23] MEDS: ELECTROLYTE-148 SOLN 1,000 ML IV SCH (18:07)
[2023-11-24 02:41] VITALS: RESP 18
[2023-11-24 08:55] LABS: BASO % 0.3 % (0-2.0); EOS % 1.9 % (0-4.5); HEMATOCRIT 23.9 % (32.4-45.2); HEMOGLOBIN 7.7 GM/dL (10.7-15.3); LYMPH % 16.8 % (8-40); MCH 25.8 pg (25.7-33.7); MCHC 32.3 g/dl (32.0-36.0); MEAN CELL VOLUME 79.9 fl (80-96); MEAN PLT VOLUME 8.5 fl (7.5-11.1); PLATELET COUNT 189 10^3/uL (134-434)
[2023-11-25] MEDS: BISACODYL 10 MG SUPP.RECT RC PRN (08:18)
[2023-11-25 08:43] LABS: BASO % 0.6 % (0-2.0); EOS % 3.1 % (0-4.5); HEMATOCRIT 22.1 % (32.4-45.2); HEMOGLOBIN 7.1 GM/dL (10.7-15.3); LYMPH % 19.7 % (8-40); MEAN CELL VOLUME 81.2 fl (80-96); MONO % 6.7 % (3.8-10.2); NEUT % 69.9 % (42.8-82.8); PLATELET COUNT 209 10^3/uL (134-434); RBC 2.73 M/mm3 (3.60-5.2); RDW 27.9 % (11.6-15.6); WHITE BLOOD COUNT 7.5 K/mm3 (4.0-10.0)
[2023-11-25] MEDS: IRON SUCROSE INJECTION 200 MG in SODIUM CHLORIDE 100 ML IVPB ONE (10:50)
[2023-11-25 12:57] VITALS: BP 103/67; PULSE 73; TEMP 98.2
== END 2023-11-25 16:00 | disposition home or self-care (01) | DRG 540 ==
LOC: JLDR 10:24 → J3W 21:39
PROVIDERS: ADMIT Student in an Organized Health Care Education/Training Program; ATTEND Student in an Organized Health Care Education/Training Program
PROC: 10D00Z1 Extraction of Products of Conception, Low, Open Approach (ICD-10-PCS; principal; 2023-11-22)
PROC: 0W3R0ZZ Control Bleeding in Genitourinary Tract, Open Approach (ICD-10-PCS; 2023-11-22)
DX: O34.219 Maternal care for unspecified type scar from previous cesarean delivery (principal); Z3A.39 39 weeks gestation of pregnancy; Z37.0 Single live birth; O72.1 Other immediate postpartum hemorrhage; O90.81 Anemia of the puerperium
CPT/HCPCS: 36415; 36600; 59409; 76856-TC; 82803; 85025; 85610; 85730; 86850; 86900; 86901; 88307-TC; J1756